=== PATIENT | male | born 1990 ===

== ENCOUNTER 2019-09-28 00:05 | Emergency (ER) | payer OTHER ==
[~2019-09-28] VITALS: Ht 162.6 cm; Wt 59.0 kg
[2019-09-28] MEDS ORDERED: AMPDEX10CR PO (00:33)
[2019-09-28] MEDS ORDERED: MODA200 PO (00:34)
== END 2019-09-28 00:54 | disposition home or self-care (01) ==
LOC: ER 00:05
DX: R20.2 Paresthesia of skin (principal); F41.9 Anxiety disorder, unspecified; N45.1 Epididymitis; Z79.899 Other long term (current) drug therapy
CPT/HCPCS: 99282

== ENCOUNTER → 2019-09-28 | Outpatient (CLI) | payer OTHER ==
[~2019-09-28] MED LIST: AMPDEX10CR PO; MODA200 PO
[2019-10-01 09:09] LABS: CHLAMYDIA TRACHOMATIS, NAA Negative (Negative); NEISSERIA GONORRHOEAE, NAA Negative (Negative)
== END | disposition home or self-care (01) ==
LOC: LAB SHORT 09:40 → LAB 09:40
PROVIDERS: Nurse Practitioner
DX: N45.1 Epididymitis (principal)
CPT/HCPCS: 87491; 87591

== ENCOUNTER 2024-07-02 23:33 | Emergency (ER) | payer OTHER ==
[~2024-07-02] VITALS: Ht 157.5 cm; Wt 61.2 kg
[2024-07-02 23:38] VITALS: BP 147/78
== END 2024-07-03 00:10 | disposition home or self-care (01) ==
LOC: ER 23:33
DX: R61 Generalized hyperhidrosis (principal); F17.200 Nicotine dependence, unspecified, uncomplicated
CPT/HCPCS: 93005; 93010; 99283-25